=== PATIENT | female | born 1995 | race Caucasian/White ===

== ENCOUNTER 2017-04-24 04:47 | Outpatient (CLI) | payer SELFPAY | END 2017-04-24 04:48 | disposition critical access hospital (66) | LOC: EMS 04:47 | PROVIDERS: ATTEND Surgery | DX: R45.89 Other symptoms and signs involving emotional state (principal) | CPT/HCPCS: A0425; A0429 ==

== ENCOUNTER 2017-04-24 05:00 | Emergency (ER) | payer SELFPAY ==
[2017-04-24] MEDS ORDERED: LORazepam 2 MG/ML SYRINGE IM STA (05:12)
[2017-04-24] MEDS ORDERED: LORazepam 2 MG/ML SYRINGE ONE (05:18)
[2017-04-24 05:45] LABS: BASOPHILS # (AUTO) 0.1 10^3/uL (0.0-0.1); BASOPHILS % (AUTO) 0.7 %; EOSINOPHILS % (AUTO) 0.1 %; HCT - HEMATOCRIT 43.1 % (37.0-47.0); HGB - HEMOGLOBIN 14.3 g/dL (12.0-16.0); LYMPHOCYTES # (AUTO) 3.4 10^3/uL (1.5-3.5); MEAN CORPUSCULAR HEMOGLOBIN 29.6 pg (27.0-31.0); MEAN CORPUSCULAR HGB CONC 33.2 g/dL (32.0-36.0); MEAN CORPUSCULAR VOLUME 89.1 fL (81.0-99.0); MEAN PLATELET VOLUME 7.1 fL (7.9-10.8); MONOCYTES # (AUTO) 0.6 10^3/uL (0.0-1.0); MONOCYTES % (AUTO) 6.5 %; NEUTROPHILS # (AUTO) 4.9 10^3/uL (1.5-6.6); NEUTROPHILS % (AUTO) 54.7 %; RED BLOOD COUNT 4.84 10^6/uL (4.20-5.40); RED CELL DISTRIBUTION WIDTH 13.5 % (12.0-15.0)
[2017-04-24 05:54] LABS: BUN - BLOOD UREA NITROGEN 9 mg/dL (6-20); CALCIUM 9.3 mg/dL (8.5-10.3); CARBON DIOXIDE - CO2 23 mmol/L (21-32); CHLORIDE 106 mmol/L (101-111); CREATININE 0.8 mg/dL (0.4-1.0); GFR - MDRD 89 (>89); GLUCOSE 109 mg/dL (70-100); POTASSIUM 3.6 mmol/L (3.5-5.0); SALICYLATE < 6.0 mg/dL; SODIUM 143 mmol/L (135-145)
[2017-04-24 06:06] LABS: ACETAMINOPHEN < 10 ug/mL (10-30)
--- NOTE | 2017-04-24 06:31 | ED Physician Documentation ---
PD HPI MHE - Stated complaint Stated Complaint: ALOC/ETOH - Chief complaint Chief Complaint: MHE - History obtained from History obtained from: EMS - History of Present Illness Primary symptom: Suicidal ideation Timing - onset: Unknown - Additional information Additional information: patient was reportedly found face-down on sidewalk. She was found to be hyperventilating by police and then medics and is not answering most questions. On my HPI, patient is hyperventilating and not answering my questions; she is not consolable or able to be distracted from her hyperventilation. The triaging RN says that patient did comment to him that she did not want to be in ED and that she wanted to kill herself. I ordered 1mg IM ativan, and she subsequently fell asleep. Unfortunately, on repeated reevaluation, I was unable to wake her up enough to answer questions and thus I signed the case out to the oncoming ED physician. Her work-up at the time of sign-out, including blood tests and CT head, is unremarkable except for elevated CATHY. Review of Systems Unable to obtain: Intoxicated, Uncooperative PD PAST MEDICAL HISTORY - Past Medical History Other Past Medical History: unknown - Past Surgical History Other past surgical history: unknown - Present Medications Home Medications: Ambulatory Orders Medication Instructions Recorded Confirmed Buspirone HCl 10 mg PO DAILY #5 tablet 04/24/17 Escitalopram Oxalate [Lexapro] 20 mg PO DAILY #5 tablet 04/24/17 - Allergies Allergies/Adverse Reactions: Allergies Allergy/AdvReac Type Severity Reaction Status Date / Time amoxicillin Allergy Anaphylaxis Verified 04/24/17 14:13 - Social History Does the pt smoke?: Yes Smoking Status: Current every day smoker PD ED PE NORMAL - Vitals Vital signs reviewed: Yes - General General: Well developed/nourished, Other (appears very anxious on arrival, with crying and hyperventilation) - HEENT HEENT: PERRL, EOMI, Moist mucous membranes - Neck Neck: Supple, no meningeal sign - Cardiac Cardiac: No murmur - Respiratory Respiratory: Clear bilaterally - Abdomen Abdomen: Soft, Non tender - Derm Derm: Normal color, Warm and dry - Extremities Extremities: No edema PD ED PE EXPANDED - Cardiac Cardiac: Tachy, Regular Rhythm - Respiratory Respiratory: Other (tachypneic) Results - Vitals Vitals: Vital Signs - 24 hr 1204/24/17 04/24/17 05:02 07:04 08:20 Temperature 36.4 C L 36.9 C Heart Rate 116 H 115 H Respiratory 35 H 14 Rate Blood Pressure 150/114 H 114/86 H O2 Saturation 96 98 04/24/17 04/24/17 04/24/17 10:11 14:15 16:10 Temperature 36.8 C Heart Rate 77 101 H 72 Respiratory 15 15 14 Rate Blood Pressure 101/64 111/72 112/75 O2 Saturation 96 98 98 Oxygen O2 Source Room air - Labs Labs: Laboratory Tests 04/24/17 04/24/17 04/24/17 05:29 05:29 11:00 WBC 9.0 RBC 4.84 Hgb 14.3 Hct 43.1 MCV 89.1 MCH 29.6 MCHC 33.2 RDW 13.5 Plt Count 332 MPV 7.1 L Neut # 4.9 Lymph # 3.4 Bee # 0.6 Eos # 0.0 Baso # 0.1 Absolute Nucleated RBC 0.00 Nucleated RBC % 0.0 Sodium 143 Potassium 3.6 Chloride 106 Carbon Dioxide 23 Anion Gap 14.0 H BUN 9 Creatinine 0.8 Estimated GFR (MDRD) 89 Glucose 109 H Calcium 9.3 Urine Color YELLOW Urine Clarity CLEAR Urine pH 6.0 Ur Specific [place] 1.025 Urine Protein NEGATIVE Urine Glucose (UA) NEGATIVE Urine Ketones NEGATIVE Urine Occult Blood SMALL H Urine Nitrite NEGATIVE Urine Bilirubin NEGATIVE Urine Urobilinogen 0.2 (NORMAL) Ur Leukocyte Esterase NEGATIVE Urine RBC 0-5 Urine WBC 0-3 Ur Squamous Epith Cells RARE Squamous Urine Bacteria Rare Ur Microscopic Review INDICATED Urine Culture Comments NOT INDICATED Urine HCG, Qual Salicylates < 6.0 Urine Opiates Screen NEGATIVE Ur Oxycodone Screen NEGATIVE Urine Methadone Screen NEGATIVE Ur Propoxyphene Screen NEGATIVE Acetaminophen < 10 L Ur Barbiturates Screen NEGATIVE Ur Tricyclics Screen NEGATIVE Ur Phencyclidine Scrn NEGATIVE Ur Amphetamine Screen NEGATIVE U Methamphetamines Scrn NEGATIVE U Benzodiazepines Scrn POSITIVE H Urine Cocaine Screen NEGATIVE U Cannabinoids Screen NEGATIVE Ethyl Alcohol 219.4 04/24/17 04/24/17 11:00 12:09 WBC RBC Hgb Hct MCV MCH MCHC RDW Plt Count MPV Neut # Lymph # Bee # Eos # Baso # Absolute Nucleated RBC Nucleated RBC % Sodium Potassium Chloride Carbon Dioxide Anion Gap BUN Creatinine Estimated GFR (MDRD) Glucose Calcium Urine Color Urine Clarity Urine pH Ur Specific [place] 1.025 Urine Protein Urine Glucose (UA) Urine Ketones Urine Occult Blood Urine Nitrite Urine Bilirubin Urine Urobilinogen Ur Leukocyte Esterase Urine RBC Urine WBC Ur Squamous Epith Cells Urine Bacteria Ur Microscopic Review Urine Culture Comments Urine HCG, Qual NEGATIVE Salicylates Urine Opiates Screen Ur Oxycodone Screen Urine Methadone Screen Ur Propoxyphene Screen Acetaminophen Ur Barbiturates Screen Ur Tricyclics Screen Ur Phencyclidine Scrn Ur Amphetamine Screen U Methamphetamines Scrn U Benzodiazepines Scrn Urine Cocaine Screen U Cannabinoids Screen Ethyl Alcohol 90.0 - Rads (name of study) CT head Radiology: Prelim report reviewed, See rad report PD MEDICAL DECISION MAKING - ED course ED course: RN that triaged patient says that patient made Departure - Departure Disposition: 01 Home, Self Care Clinical Impression: Depression Condition: Good Instructions: ED Depression Prescriptions: Buspirone HCl 10 mg PO DAILY #5 tablet Escitalopram Oxalate [Lexapro] 20 mg PO DAILY #5 tablet Comments: Go to the crisis respite center as instructed by the health care social worker. Do not drink alcohol. Discharge Date/Time: 04/24/17 16:38
--- NOTE | 2017-04-24 07:40 | CT Preliminary Report ---
Exam: CT HEAD W/O IMPRESSION: 1. No acute intracranial process is identified. 2. Paranasal sinus mucosal thickening is present greatest in the right maxillary sinus and in the le ft sphenoid air cell 3. The study is limited by patient position in the scanner and motion [facility] SITE ID: [id number]
--- NOTE | 2017-04-24 07:43 | CT Report ---
EXAM: CT HEAD EXAM DATE: 04/24/2017 07:30 AM. CLINICAL HISTORY: AMS. COMPARISON: None. TECHNIQUE: Multiaxial CT images were obtained from the foramen magnum to the vertex. Reformats: Coron al. IV contrast: None. In accordance with CT protocol optimization, one or more of the following dose reduction techniques w ere utilized for this exam: automated exposure control, adjustment of mA and/or KV based on patient s ize, or use of iterative reconstructive technique. FINDINGS: The study is limited by patient positioning in the scanner and motion Mastoid air cells are well aerated. No depressed bilateral sphenoid sinus mucosal thickening is prese nt greater on the left relative to the right. Right ethmoid air cell and maxillary sinus mucosal thic kening is present Ventricles and sulci are within normal limits. No extra-axial fluid collection is present Thomas-white matter differentiation is preserved No intracranial mass or hemorrhage is present IMPRESSION: 1. No acute intracranial process is identified. 2. Paranasal sinus mucosal thickening is present greatest in the right maxillary sinus and in the le ft sphenoid air cell 3. The study is limited by patient position in the scanner and motion [facility] Referring Provider Line: [phone] SITE ID: [id number]
[2017-04-24] MEDS ORDERED: SODIUM CHLORIDE 0.9% 1,000 ML IV ONE (09:05)
[2017-04-24] MEDS: SODIUM CHLORIDE 0.9% 1,000 ML IV ONE ×2 (09:20→10:00)
[2017-04-24 11:19] LABS: BILIRUBIN,URINE NEGATIVE (NEGATIVE)
[2017-04-24 11:23] LABS: UA w/ MICROSCOPIC CHARGE YES; UR CULTURE IF IND NOT INDICATED; WBC,URINE 0-3 /HPF (0-5)
[2017-04-24 11:24] LABS: HCG UR QUAL NEGATIVE
--- NOTE | 2017-04-24 12:04 | ED Physician Documentation ---
ED Addendum - Addendum Addendum: 04/24/17 12:02 21 y/o f signed out to me by Dr. Keating for SI and etoh intoxication. IVF started for tachycardia and HR decreased. Patient slept in the ED during my shift. Signed out to Dr. Simpson for repeat etoh level, repeat mental health eval either by the physician or SW. came to bedside at end of my shift.
--- NOTE | 2017-04-24 16:23 | ED Physician Documentation ---
PD HPI MHE - Stated complaint Stated Complaint: ALOC/ETOH - Chief complaint Chief Complaint: MHE PD PAST MEDICAL HISTORY - Past Medical History Other Past Medical History: unknown - Past Surgical History Other past surgical history: unknown - Present Medications Home Medications: Ambulatory Orders Medication Instructions Recorded Confirmed Buspirone HCl 10 mg PO DAILY #5 tablet 04/24/17 Escitalopram Oxalate [Lexapro] 20 mg PO DAILY #5 tablet 04/24/17 - Allergies Allergies/Adverse Reactions: Allergies Allergy/AdvReac Type Severity Reaction Status Date / Time amoxicillin Allergy Anaphylaxis Verified 04/24/17 14:13 - Social History Does the pt smoke?: Yes Smoking Status: Current every day smoker Results - Vitals Vitals: Vital Signs - 24 hr 04/24/17 04/24/17 04/24/17 05:02 07:04 08:20 Temperature 36.4 C L 36.9 C Heart Rate 116 H 115 H Respiratory 35 H 14 Rate Blood Pressure 150/114 H 114/86 H O2 Saturation 96 98 04/24/17 04/24/17 04/24/17 10:11 14:15 16:10 Temperature 36.8 C Heart Rate 77 101 H 72 Respiratory 15 15 14 Rate Blood Pressure 101/64 111/72 112/75 O2 Saturation 96 98 98 Oxygen O2 Source Room air - Labs Labs: Laboratory Tests 04/24/17 04/24/17 04/24/17 05:29 05:29 11:00 WBC 9.0 RBC 4.84 Hgb 14.3 Hct 43.1 MCV 89.1 MCH 29.6 MCHC 33.2 RDW 13.5 Plt Count 332 MPV 7.1 L Neut # 4.9 Lymph # 3.4 Tripp # 0.6 Eos # 0.0 Baso # 0.1 Absolute Nucleated RBC 0.00 Nucleated RBC % 0.0 Sodium 143 Potassium 3.6 Chloride 106 Carbon Dioxide 23 Anion Gap 14.0 H BUN 9 Creatinine 0.8 Estimated GFR (MDRD) 89 Glucose 109 H Calcium 9.3 Urine Color YELLOW Urine Clarity CLEAR Urine pH 6.0 Ur Specific [place] 1.025 Urine Protein NEGATIVE Urine Glucose (UA) NEGATIVE Urine Ketones NEGATIVE Urine Occult Blood SMALL H Urine Nitrite NEGATIVE Urine Bilirubin NEGATIVE Urine Urobilinogen 0.2 (NORMAL) Ur Leukocyte Esterase NEGATIVE Urine RBC 0-5 Urine WBC 0-3 Ur Squamous Epith Cells RARE Squamous Urine Bacteria Rare Ur Microscopic Review INDICATED Urine Culture Comments NOT INDICATED Urine HCG, Qual Salicylates < 6.0 Urine Opiates Screen NEGATIVE Ur Oxycodone Screen NEGATIVE Urine Methadone Screen NEGATIVE Ur Propoxyphene Screen NEGATIVE Acetaminophen < 10 L Ur Barbiturates Screen NEGATIVE Ur Tricyclics Screen NEGATIVE Ur Phencyclidine Scrn NEGATIVE Ur Amphetamine Screen NEGATIVE U Methamphetamines Scrn NEGATIVE U Benzodiazepines Scrn POSITIVE H Urine Cocaine Screen NEGATIVE U Cannabinoids Screen NEGATIVE Ethyl Alcohol 219.4 04/24/17 04/24/17 11:00 12:09 WBC RBC Hgb Hct MCV MCH MCHC RDW Plt Count MPV Neut # Lymph # Tripp # Eos # Baso # Absolute Nucleated RBC Nucleated RBC % Sodium Potassium Chloride Carbon Dioxide Anion Gap BUN Creatinine Estimated GFR (MDRD) Glucose Calcium Urine Color Urine Clarity Urine pH Ur Specific [place] 1.025 Urine Protein Urine Glucose (UA) Urine Ketones Urine Occult Blood Urine Nitrite Urine Bilirubin Urine Urobilinogen Ur Leukocyte Esterase Urine RBC Urine WBC Ur Squamous Epith Cells Urine Bacteria Ur Microscopic Review Urine Culture Comments Urine HCG, Qual NEGATIVE Salicylates Urine Opiates Screen Ur Oxycodone Screen Urine Methadone Screen Ur Propoxyphene Screen Acetaminophen Ur Barbiturates Screen Ur Tricyclics Screen Ur Phencyclidine Scrn Ur Amphetamine Screen U Methamphetamines Scrn U Benzodiazepines Scrn Urine Cocaine Screen U Cannabinoids Screen Ethyl Alcohol 90.0 PD MEDICAL DECISION MAKING - ED course ED course: Seen and evaluated by the social sciences chair, a voluntary crisis bed was found. She needs 3 days worth of her medications which I wrote for. See Dr Keating' note for original H and P. Departure - Departure Disposition: 01 Home, Self Care Clinical Impression: Depression Qualifiers: Depression Type: major depressive disorder Major depression recurrence: recurrent Active/Remission status: currently active Major depression episode severity: severe Psychotic features: without psychotic features Qualified Code(s ): F33.2 - Major depressive disorder, recurrent severe without psychotic features Condition: Good Record reviewed to determine appropriate education?: Yes Instructions: ED Depression Prescriptions: Buspirone HCl 10 mg PO DAILY #5 tablet Escitalopram Oxalate [Lexapro] 20 mg PO DAILY #5 tablet Comments: Go to the crisis respite center as instructed by the social sciences chair. Do not drink alcohol. Discharge Date/Time: 04/24/17 16:38
[2017-04-24 16:38] VITALS: BP 112/75
== END 2017-04-24 16:38 | disposition home or self-care (01) ==
LOC: EDUNIT# → EDBD → ED 05:00
DX: F33.2 Major depressive disorder, recurrent severe without psychotic features (principal); R45.851 Suicidal ideations; F17.200 Nicotine dependence, unspecified, uncomplicated
CPT/HCPCS: 36415; 70450; 80048; 80306; 80307; 80320; 80329; 81001; 81025; 85025; 96360; 96361; 96372; 99284; J2060; 81003; 87086